=== PATIENT | male | born 1990 ===

== ENCOUNTER 2017-03-27 13:56 | Emergency (ER) | payer SELFPAY ==
[2017-03-27 14:15] VITALS: BP 122/60; PULSE 78; RESP 18; TEMP 98.3; O2SAT 98
--- NOTE | 2017-03-27 14:30 | ED PDOC ---
Upper Extremity Pain/Injury Time Seen by Provider: 03/27/17 14:05 Chief Complaint (Nursing): Finger,Hand,&Wrist Chief Complaint (Provider): Laceration History Per: Patient History/Exam Limitations: no limitations Onset/Duration Of Symptoms: Sudden Onset Current Symptoms Are (Timing): Still Present Additional Complaint(s): Juwan Landin is a 26 y/o male presenting to the ER on 03/27/2017 with a laceration to his right index finger. Patient states he sustained the injury after cleaning glass at work. Last tetanus shot is unknown. Patient denies numbness or tingling to affected area. He does have mild throbbing pain. Able to bend affected digit without limitation. Past Medical History Reviewed: Historical Data, Nursing Documentation, Vital Signs Vital Signs: Last Vital Signs Temp 98.3 F 03/27/17 14:12 Pulse 78 03/27/17 14:12 Resp 18 03/27/17 14:12 BP 122/60 03/27/17 14:12 Pulse Ox 98 03/27/17 14:12 - Medical History PMH: No Chronic Diseases - Surgical History Surgical History: No Surg Hx - Family History Family History: States: No Known Family Hx - Living Arrangements Living Arrangements: With Family - Social History Current smoker - smoking cessation education provided: No Alcohol: None Drugs: Denies - Immunization History Hx Tetanus Toxoid Vaccination: No (not sure) - Home Medications Home Medications: Ambulatory Orders Medication Instructions Recorded Cephalexin [Keflex] 500 mg PO TID #21 capsule 03/27/17 Ibuprofen [Motrin] 600 mg PO Q6 PRN #15 tab 03/27/17 - Allergies Allergies/Adverse Reactions: Allergies Allergy/AdvReac Type Severity Reaction Status Date / Time No Known Allergies Allergy Verified 03/27/17 14:15 Review of Systems ROS Statement: Except As Marked, All Systems Reviewed And Found Negative Musculoskeletal: Positive for: Hand Pain (right index finger laceration) Neurological: Negative for: Weakness, Numbness Physical Exam - Reviewed Nursing Documentation Reviewed: Yes Vital Signs Reviewed: Yes - Physical Exam Appears: Positive for: Non-toxic, No Acute Distress Head Exam: Positive for: ATRAUMATIC, NORMOCEPHALIC Skin: Positive for: Normal Color Eye Exam: Positive for: Normal appearance Extremity: Positive for: Other (2 cm laceration overlying distal metacarpal of the right index finger; normal distal sensation; no active bleeding, full rom of affected digit). Negative for: Tenderness, Swelling Neurologic/Psych: Positive for: Alert, Oriented. Negative for: Motor/Sensory Deficits - ECG O2 Sat by Pulse Oximetry: 98 Pulse Ox Interpretation: Normal - Other Rad Right hand x-ray X-Ray: Interpreted by Me, Viewed By Me X-Ray Interpretation: no fx, no dis, no FB Medical Decision Making Medical Decision Makin:05 Initial Impression- Laceration Initial Plan- * TDAP vaccine 0.5 ml IM * XR Right Hand * Lac repair - patient agrees to lac repair by PA. Wound care instructions given. Documented by Marsha Montenegro, acting as a scribe for Daisha Ruiz PA-C All medical record entries made by the Scribe were at my direction and personally dictated by me. I have reviewed the chart and agree that the record accurately reflects my personal performance of the history, physical exam, medical decision making, and the department course for this patient. I have also personally directed, reviewed, and agree with the discharge instructions and disposition. Procedures - Laceration/Wound Repair Right Hand Wound Length (cm): 2 Wound's Depth, Shape: superficial Wound Explored: no foreign body removed Irrigated w/ Saline (ccs): 50 Betadine Prep?: Yes Anesthesia: 1% Lidocaine Volume Anesthetic (ccs): 8 Wound Debrided: minimal Wound Repaired With: Sutures Suture Size/Type: 5:0, nylon Number of Sutures: 7 Layer Closure?: No Wound Complexity: Simple Sterile Dressing Applied?: Yes Disposition - Clinical Impression Clinical Impression: Hand laceration, Requires a booster tetanus - Patient ED Disposition Is Patient to be Admitted: No Counseled Patient/Family Regarding: Studies Performed, Diagnosis, Need For Followup, Rx Given - Disposition Referrals: Zion Braxton MD [Medical Doctor] - [facility] [Outside] Disposition: Routine/Home Disposition Time: 15:54 Condition: STABLE Additional Instructions: KEEP WOUND CLEAN AND DRY TAKE RX MEDS DIRECTED WOUND CHECK 2-3 DAYS SUTURE REMOVAL 14 DAYS Prescriptions: Cephalexin [Keflex] 500 mg PO TID #21 capsule Ibuprofen [Motrin] 600 mg PO Q6 PRN #15 tab PRN Reason: Pain, Moderate (4-7) Instructions: Laceration (ED), Care For Your Stitches (ED), Diphtheria/ Acellular Pertussis/Tetanus Vaccine (DTaP) (By injection) Print Language: [place]
[2017-03-27] MEDS ORDERED: Lidocaine 2% Inj (20ml) SC ONE (14:34)
[2017-03-27] MEDS ORDERED: TDAP Vaccine 0.5 mL Syr IM ONE (14:34)
[2017-03-27] MEDS ORDERED: Lidocaine 1% Inj (20ml) ONE (14:53)
--- NOTE | 2017-03-27 15:11 | RAD ---
PROCEDURE: Right Hand Radiographs. HISTORY: Trauma. Technologist notation indicates broken glass COMPARISON: None. FINDINGS: BONES: Normal. No fracture. JOINTS: Normal. No osteoarthritic changes. SOFT TISSUES: Normal. OTHER FINDINGS: No radiopaque foreign bodies IMPRESSION: No acute fracture seen.
== END 2017-03-27 16:00 | disposition home or self-care (01) ==
LOC: H.ER 13:56
DX: S61.201A Unspecified open wound of left index finger without damage to nail, initial encounter (principal); W25.XXXA Contact with sharp glass, initial encounter; Y99.0 Civilian activity done for income or pay

== ENCOUNTER 2017-04-09 17:11 | Emergency (ER) | payer SELFPAY ==
[2017-04-09 17:32] VITALS: BP 107/56; PULSE 85; RESP 18; TEMP 98.2; O2SAT 98
--- NOTE | 2017-04-09 18:39 | RAD ---
PROCEDURE: Right Hand Radiographs. HISTORY: right index finger infection COMPARISON: None available. FINDINGS: BONES: No acute displaced fracture. JOINTS: No dislocation. SOFT TISSUES: Soft tissue swelling of the 2nd digit. Soft tissue irregularity consistent with laceration or ulceration with overlying bandage at the proximal 2nd phalanx laterally. No evidence of radiopaque foreign body. OTHER FINDINGS: None. IMPRESSION: Soft tissue swelling of the 2nd digit. Soft tissue irregularity consistent with laceration or ulceration with overlying bandage at the proximal 2nd phalanx laterally. Correlate clinically.
--- NOTE | 2017-04-09 18:55 | ED PDOC ---
HPI: Wound Care - HPI Time Seen by Provider: 04/09/17 17:31 Chief Complaint (Nursing): Wound Check Chief Complaint (Provider): Wound check - Laceration repair right hand 10 days ago History Per: Patient Exam Limitations: no limitations Onset/Duration Of Symptoms: Days Quality Of Symptoms: Painful Severity: Moderate Pain Scale Rating Of: 5 Additional Complaint(s): Pt reports localized redness and pain. Pt did not fill Rx for keflex or motrin. Past Medical History Reviewed: Historical Data, Nursing Documentation, Vital Signs Vital Signs: Last Vital Signs Temp 98.2 F 04/09/17 17:28 Pulse 85 04/09/17 17:28 Resp 18 04/09/17 17:28 BP 107/56 L 04/09/17 17:28 Pulse Ox 98 04/09/17 17:28 - Medical History PMH: No Chronic Diseases - Surgical History Surgical History: No Surg Hx - Family History Family History: States: Unknown Family Hx - Living Arrangements Living Arrangements: With Family - Social History Current smoker - smoking cessation education provided: No Alcohol: None Drugs: Denies - Immunization History Hx Tetanus Toxoid Vaccination: No (not sure) - Home Medications Home Medications: Ambulatory Orders Medication Instructions Recorded Cephalexin [Keflex] 500 mg PO TID #21 capsule 03/27/17 Ibuprofen [Motrin] 600 mg PO Q6 PRN #15 tab 03/27/17 Sulfamethoxazole/Trimethoprim 1 each PO BID #20 tablet 04/09/17 [Bactrim 400-80 mg Tablet] - Allergies Allergies/Adverse Reactions: Allergies Allergy/AdvReac Type Severity Reaction Status Date / Time No Known Allergies Allergy Verified 04/09/17 17:26 Review of Systems ROS Statement: Except As Marked, All Systems Reviewed And Found Negative Skin: Positive for: Other Physical Exam - Reviewed Nursing Documentation Reviewed: Yes Vital Signs Reviewed: Yes - Physical Exam Appears: Positive for: Well, Non-toxic, No Acute Distress Head Exam: Positive for: ATRAUMATIC, NORMAL INSPECTION, NORMOCEPHALIC Skin: Positive for: Warm. Negative for: Normal Color ((+) erythema surrounding the wound, right hand; no drainage, sutures intact. ) Eye Exam: Positive for: EOMI, Normal appearance, PERRL ENT: Positive for: Normal ENT Inspection Neck: Positive for: Normal, Painless ROM Cardiovascular/Chest: Positive for: Regular Rate, Rhythm Respiratory: Positive for: CNT, Normal Breath Sounds Gastrointestinal/Abdominal: Positive for: Normal Exam, Bowel Sounds, Soft Back: Positive for: Normal Inspection Extremity: Positive for: Normal ROM Neurologic/Psych: Positive for: Alert, Oriented - ECG O2 Sat by Pulse Oximetry: 98 Pulse Ox Interpretation: Normal Medical Decision Making Medical Decision Making: No osteomyolitis on x-ray. Discussed with RNBess filling previous Rx (pt has paper copy with him) and new antibiotic. Disposition - Clinical Impression Clinical Impression: Encounter for wound re-check - Patient ED Disposition Is Patient to be Admitted: No Counseled Patient/Family Regarding: Diagnosis, Need For Followup, Rx Given - Disposition Disposition: Routine/Home Disposition Time: 19:03 Condition: GOOD Prescriptions: Sulfamethoxazole/Trimethoprim [Bactrim 400-80 mg Tablet] 1 each PO BID #20 tablet Instructions: Wound Infection (ED) Print Language: ESTONIAN
== END 2017-04-09 19:17 | disposition home or self-care (01) ==
LOC: H.ER 17:11
DX: T81.4XXA Infection following a procedure, initial encounter (principal)